=== PATIENT | male | born 1955 | race Caucasian/White ===

== ENCOUNTER → 2024-02-09 06:13 | Day surgery (SDC) | payer MEDICARE, OTHER, SELFPAY | LOC: GI 06:13 | PROVIDERS: ATTENDING PHYSICIAN Internal Medicine Gastroenterology | DX: Z12.11 Encounter for screening for malignant neoplasm of colon (principal); Z86.0100 Personal history of colon polyps, unspecified; K64.9 Unspecified hemorrhoids | CPT/HCPCS: G0105 ==